=== PATIENT | female | born 1960 | race Caucasian/White ===

== ENCOUNTER → 2020-08-31 | Outpatient (CLI) | payer MEDICARE, OTHER ==
[~2020-08-31] MED LIST: B12 INJ; CLONAZEPAM0.5 MG PO; DHEA50 MG PO; FIORICET TAB1 EA PO; FLEXERIL 10 MG10 MG PO; FUROSEMIDE20 MG PO; GLUCOPHAGE XR750 MG PO; HORMONE CREAM; IBUPROFEN600 MG PO; LAMICTAL TAB 1100 MG PO; MAGNESIUM400 MG PO; NADOLOL40 MG PO; NORCO 5-325 TA1 EACH PO; OMEPRAZOLE20 M1 PO; POTASSIUM CHLO10 ME1 PO; TOPAMAX50 MG PO; VITAMIN B12 PO; VITAMIN D3 PO; WOMEN'S DAILY1 EAC3 PO; ZOLOFT25 MG PO
== END ==
LOC: MRI 08-24 13:00
PROVIDERS: Internal Medicine
DX: S83.411A Sprain of medial collateral ligament of right knee, initial encounter (principal); N18.30 Chronic kidney disease, stage 3 unspecified; S82.831A Other fracture of upper and lower end of right fibula, initial encounter for closed fracture; M94.8X6 Other specified disorders of cartilage, lower leg
CPT/HCPCS: 36415; 73721; 80069; 82570; 83970; 84156; 85018

== ENCOUNTER → 2020-10-28 | Outpatient (CLI) | payer MEDICARE, OTHER | LOC: KOH-I 09:04 | DX: S83.206A Unspecified tear of unspecified meniscus, current injury, right knee, initial encounter (principal) | CPT/HCPCS: 73721 ==

== ENCOUNTER 2021-04-27 17:46 | Emergency (ER) | payer MEDICARE, OTHER ==
[2021-04-27] MEDS ORDERED: CYCLOBENZAPRINE10 MG PO (19:52)
[2021-04-27] MEDS ORDERED: HYDROCODON-ACE1 EAC4 PO (20:05)
== END 2021-04-27 20:22 | disposition home or self-care (01) ==
LOC: ER1 17:46
DX: S20.222A Contusion of left back wall of thorax, initial encounter (principal); W11.XXXA Fall on and from ladder, initial encounter
CPT/HCPCS: 71111; 72128; 72131; 94760; 96372; 99284; J3360

== ENCOUNTER 2021-09-08 12:20 | Observation (INO) | payer MEDICARE, OTHER ==
[~2021-09-08] VITALS: Ht 172.7 cm; Wt 111.1 kg
[~2021-09-08 12:20] MED LIST changes: +B-125000 MC2 PO; -B12 INJ; -CLONAZEPAM0.5 MG PO; +CYCLOBENZAPRINE10 MG PO; +HYDROCODON-ACE1 EAC4 PO; +KLONOPIN1 MG PO; -VITAMIN D3 PO; +VITAMIN D31250 MCG PO
[2021-09-08 14:09] LABS: HEMOGLOBIN 13.6 gm/dl (12.3-15.3); RED BLOOD COUNT 4.51 M/UL (4.00-5.10); WHITE BLOOD COUNT 8.4 K/UL (4.5-11.0)
[2021-09-08] MEDS ORDERED: PROZAC20 MG PO (16:43)
[2021-09-08] MEDS ORDERED: TRAZODONE HCL50 MG PO (16:44)
[2021-09-08] MEDS ORDERED: INDERAL TAB 1010 MG PO (16:46)
[2021-09-08] MEDS ORDERED: PROBIOTIC1 EAC1 PO (17:03)
[2021-09-08] MEDS ORDERED: CRESTOR10 MG PO (17:03)
[2021-09-08] MEDS ORDERED: FLONASE 0.05% N16 GM (17:04)
[2021-09-08] MEDS ORDERED: BENADRYL25 MG PO (17:04)
[2021-09-08] MEDS ORDERED: LIORESAL TAB 1010 MG PO (17:09)
[2021-09-08] MEDS ORDERED: CEQUA1 EACH OP (17:10)
[2021-09-08] MEDS ORDERED: COMPOUND PAIN CREAM TOP (17:25)
[2021-09-08] MEDS ORDERED: LAMICTAL100 MG PO (17:26)
[2021-09-08] MEDS ORDERED: ABILIFY 2 MG TAB2 MG PO (17:27)
[2021-09-09 02:55] LABS: HEMOGLOBIN 13.2 gm/dl (12.3-15.3); RED BLOOD COUNT 4.39 M/UL (4.00-5.10); WHITE BLOOD COUNT 7.8 K/UL (4.5-11.0)
[2021-09-09 03:22] LABS: BUN/CREATININE RATIO 14 (0-10)
[2021-09-10 06:25] LABS: HEMOGLOBIN 13.2 gm/dl (12.3-15.3); RED BLOOD COUNT 4.33 M/UL (4.00-5.10); WHITE BLOOD COUNT 7.6 K/UL (4.5-11.0)
--- NOTE | 2021-09-10 12:56 | NUR ---
RECEIVED PATIENT BACK FROM HEART CATH AT 1020. AAOX3. TR BAND INTACT TO RIGHT WRIST. NO BLEEDING OR HEMATOMA NOTED. BEGAN RELEASING AIR FROM BAND AT 1045, 2ML EVERY 15 MINUTES. ALL AIR REMOVED AT THIS TIME. TR BAND REMOVED. NO DISTRESS NOTED. WCTM.
== END 2021-09-10 14:29 | disposition home or self-care (01) ==
LOC: ER1 12:20 → CDU 15:37 → MED SURG 4 15:37 → CDU 15:37 → MED SURG 4 17:03
PROVIDERS: Emergency Medicine; Physician Assistant; ADMIT Internal Medicine
PROC: B2111ZZ Fluoroscopy of Multiple Coronary Arteries using Low Osmolar Contrast (ICD-10-PCS; principal; 2021-09-10)
DX: R07.89 Other chest pain (principal); Z20.822 Contact with and (suspected) exposure to COVID-19; G40.909 Epilepsy, unspecified, not intractable, without status epilepticus; N18.30 Chronic kidney disease, stage 3 unspecified; F41.9 Anxiety disorder, unspecified; F32.A Depression, unspecified; G43.909 Migraine, unspecified, not intractable, without status migrainosus; I08.1 Rheumatic disorders of both mitral and tricuspid valves; E78.5 Hyperlipidemia, unspecified; Z79.51 Long term (current) use of inhaled steroids; Z79.899 Other long term (current) drug therapy; Z88.5 Allergy status to narcotic agent; Z88.6 Allergy status to analgesic agent; Z88.7 Allergy status to serum and vaccine; Z88.8 Allergy status to other drugs, medicaments and biological substances; Z91.013 Allergy to seafood; Z91.09 Other allergy status, other than to drugs and biological substances
CPT/HCPCS: ECHO; 36415; 71045; 78452; 80048; 80053; 82550; 82553; 84484; 85025; 93005; 93017; 93306; 96374; 96376; 99152; 99285; A9502; C1769; C1887; C1894; G0378; J1170; J1644; J2250; J2785; J3010; J7040; Q9965; Q9967; U0002